=== PATIENT | female | born 1995 | race African-American/Black ===

== ENCOUNTER 2018-03-12 19:49 | Emergency (ER) | payer OTHER ==
[2018-03-12] MEDS: CARBAMAZEPINE 200 MG TAB PO (21:52)
== END 2018-03-12 23:39 | disposition home or self-care (01) ==
LOC: FTE 19:49
DX: R51 Headache (principal)
CPT/HCPCS: 70450; 99284-25

== ENCOUNTER 2018-03-16 22:19 | Emergency (ER) | payer OTHER ==
[2018-03-16] MEDS: KETOROLAC 30 MG INJ IM (23:45)
== END 2018-03-16 23:56 | disposition home or self-care (01) ==
LOC: FTE 22:19
DX: G50.0 Trigeminal neuralgia (principal)
CPT/HCPCS: 81025; 96372; 99284-25

== ENCOUNTER 2018-05-22 21:45 | Emergency (ER) | payer OTHER ==
[2018-05-22] MEDS: KETOROLAC 60 MG INJ IM (23:53)
== END 2018-05-22 23:55 | disposition home or self-care (01) ==
LOC: FTE 21:45
DX: G50.0 Trigeminal neuralgia (principal)
CPT/HCPCS: 81025; 96372; 99284-25